=== PATIENT | male | born 1955 | race Caucasian/White ===

== ENCOUNTER 2024-02-15 12:42 | Outpatient (OUT) | payer OTHER, SELFPAY ==
--- NOTE | 2024-02-15 | RT_ITS ---
[facility] Test Date: 2024-02-15 Pat Name: SANJIV SON Department: Room: - Gender: Male Sales Team Leader: Leah Dorsey RRT : 1955 Requested By: [id number] Order Number: [id number] Reading MD: Simeon Simon Interpretive Statements Spirometry was completed according to ATS criteria. Findings were considered accurate and reproducible. Both pre- and post-bronchodilator values utilized for spirometry. Spirometry (based on pre-bronchodilator values): -FEV1/FVC: Normal @ 79% -FEV1: Moderately reduced @ 74% -FVC: Mild-moderately reduced @ 70% -There is no significant bronchodilator response. Flow-volume loop: -Mild restrictive pattern Impressions: -Spirometry trends towards mild-moderate restriction. Recommend full PFT (which includes lung volumes and diffusion capacity) to better evaluate for an underlying restrictive disorder. Clinical correlation required. Electronically Signed On 02-15-2024 17:52:21 EST by Simeon Simon
--- NOTE | 2024-02-15 | XR_ITS ---
The [place] [id number] Patient Name: SANJIV SON MRN: [id number] date: 1955 Sex: M Assigned Patient Location: CARD Current Patient Location: CARD Accession/Order Number: [id number] Exam Date: 02/15/2024 14:31 Report Date: 02/15/2024 16:30 At the request of: AASHISH QUIROS Procedure: XR knee GALI 3V EXAM: XR knee GALI 3V HISTORY: Degenerative joint disease M19.90. COMPARISON: None. TECHNIQUE: Routine views of the bilateral knees were obtained. FINDINGS/IMPRESSION: 1. There is no acute fracture or subluxation. 2. There is mild soft tissue swelling at the anterior aspect of the bilateral knees anterior to the patella and the patellar tendon. 3. 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 Electronically authenticated by: CELIA VIRK Date: 02/15/2024 16:30
--- NOTE | 2024-02-15 | XR_ITS ---
The [address] [address] Patient Name: SANJIV SON MRN: [id number] date: 1955 Sex: M Assigned Patient Location: CARD Current Patient Location: CARD Accession/Order Number: [id number] Exam Date: 02/15/2024 14:31 Report Date: 02/15/2024 16:30 At the request of: AASHISH QUIROS Procedure: XR hip BI w PEL 1V EXAM: XR hip BI w PEL 1V HISTORY: Degenerative joint disease M19.90 COMPARISON: None. TECHNIQUE: Routine views of the bilateral hips were obtained. FINDINGS/IMPRESSION: 1. There is severe osteoarthritis of the right hip joint as demonstrated by joint space narrowing and marginal spurring. 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 2. There is left hip arthroplasty without evidence of fracture or complication. 3. 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 4. No acute fracture or subluxation. 5. Mild degenerative changes at the visualized lower lumbar spine. Electronically authenticated by: CELIA VIRK Date: 02/15/2024 16:30
[2024-02-15] MEDS: ALBUTEROL SULFATE 2.5 MG/3 ML VIAL NEB IH (13:13)
--- NOTE | 2024-02-15 13:30 | CA_ITS ---
Patient Name: SANJIV SON MR#: [id number] : 1955 Exam Date: 02/15/2024 Ordering Doctor: DR. Sid Call ECHOCARDIOGRAM REPORT PROCEDURE: CA ECHO DOPPLER COMPLETE INDICATIONS: Bilat pulmonary embolism, Chest pain, Nodules on lungs COMPARISON: None. DESCRIPTION: COMPLETE ECHOCARDIOGRAM Real-time transthoracic echocardiography with 2D, M-mode, spectral and color flow Doppler performed. QUALITY: Technical quality was good. LEFT VENTRICLE: Normal chamber size. Mild concentric left ventricular hypertrophy. LV EF: Global left ventricular systolic function is normal. Calculated left ventricular ejection fraction is 62%. DIASTOLIC: Normal diastolic function. ATRIAL SEPTUM: Inadequately seen. LEFT ATRIUM: Normal chamber size. RIGHT ATRIUM: Mild dilatation. RIGHT VENTRICLE: Normal chamber size. Normal right ventricular systolic function. TRICUSPID VALVE: Normal mobility and thickness. No stenosis with trivial regurgitation. No evidence of pulmonary hypertension. RVSP 28mmHg MITRAL VALVE: Normal mobility and thickness. No evidence of mitral valve stenosis. There is no mitral annular calcification. Trivial mitral regurgitation. AORTIC VALVE: Normal trileaflet appearance. Thickened aortic valve. Normal leaflet mobility. No evidence of aortic valve stenosis. No aortic regurgitation. AORTIC ROOT: Normal diameter and appearance. PULMONIC VALVE: Normal thickness and mobility. No stenosis. No regurgitation. PERICARDIUM: Anterior free space; trivial effusion versus fat pad. IVC: Collapses with inspirations. Normal size CONCLUSION: 1. Global left ventricular systolic function is normal; visually estimated ejection fraction is 60 to 65% 2. Normal right ventricular size and systolic function 3. The right atrium is mildly dilated 4. Normal diastolic function 5. Mild left ventricular hypertrophy 6. No significant valvular abnormalities 7. Anterior free space; trivial effusion versus fat pad Adult Echocardiography Procedure Report Left Ventricle LVEDD (3.7 - 5.6 cm): 4.60 cm LVESD (2.2 - 4.0 cm): 3.24 cm LVIVS thickness (0.6 - 1.2 cm): 1.31 cm LVPW thickness (0.5 - 1.0 cm): 1.25 cm e': 0.11 m/s E - e': 6.04 LVOT Max Gradient: 2.90 mm[Hg] LVOT Area (cm2): 0.85 m/s Peak Velocity (LVOT): 0.85 m/s Mean Velocity (LVOT): 0.55 m/s LVOT Diameter 2.48 cm Left Ventricular Ejection Fraction: 62.12 % Left Atrium LA Volume Index (2D A2C): 18.84 ml/m2 Left Atrium Systolic Dimension: 4.25 cm Mitral Valve MV E to A Ratio: 1.26, 1.11 Mitral Valve A-Wave Peak Velocity: 0.57 m/s Mitral Valve E-Wave Peak Velocity: 0.67 m/s Right Ventricle RV Internal Diastolic Dimension: 3.74 cm Aorta AO Root Diam: 3.67 cm Ascending Ao Diam: 3.25 cm Aortic Valve AoV Area (Peak Juan Luis): 3.29 cm2, 3.29 cm2 AoV Area (VTI): 3.54 cm2, 3.54 cm2 Peak Velocity(Antegrade Flow): 1.24 m/s Peak Gradient(Antegrade Flow): 6.18 mm[Hg] Mean Velocity(Antegrade Flow): 0.83 m/s Mean Gradient(Antegrade Flow): 3.21 mm[Hg] Velocity Time Integral: 24.36 cm Tricuspid Valve Peak Velocity (Regurgitant Flow): 2.36 m/s, 2.08 m/s, 2.50 m/s Pulmonic Valve Mean Gradient: 2.35 mm[Hg], 3.48 mm[Hg] Mean Velocity: 0.70 m/s, 0.84 m/s Peak Velocity: 1.32 m/s Peak Gradient: 5.08 mm[Hg], 9.15 mm[Hg] Right Atrium Right Atrium Systolic Pressure: 41.41 ml, 41.41 ml Dictated by: Farhad Jett M.D. on 02/16/2024 at 10:06 Approved by: Farhad Jett M.D. on 02/16/2024 at 10:10
[2024-02-15 16:19] LABS: Free T3 2.52 pg/mL (2.18-3.98)
== END 2024-02-15 12:43 | disposition home or self-care (01) ==
LOC: CARD 12:46
PROVIDERS: Visit Provider Chiropractor
DX: R07.9 Chest pain, unspecified (principal); I26.99 Other pulmonary embolism without acute cor pulmonale; R91.8 Other nonspecific abnormal finding of lung field; M19.90 Unspecified osteoarthritis, unspecified site; E04.1 Nontoxic single thyroid nodule; M25.462 Effusion, left knee; M25.461 Effusion, right knee; M17.0 Bilateral primary osteoarthritis of knee; M16.11 Unilateral primary osteoarthritis, right hip; Z96.642 Presence of left artificial hip joint
CPT/HCPCS: 36415; 73523; 73562; 84439; 84443; 84481; 93306; 94060